=== PATIENT | female | born 1985 | race Caucasian/White ===

== ENCOUNTER 2017-12-02 09:48 | Day surgery (SDC) | payer OTHER ==
[2017-12-02] MEDS ORDERED: NS 1,000 ML IV (10:00)
[2017-12-02] MEDS ORDERED: PROPOFOL 200 MG/20 ML VIAL As Ordered ×2 (10:43)
[2017-12-02] MEDS ORDERED: diphenhydrAMINE INJ 50MG/ML VIAL (J1200) As Ordered (11:44)
[2017-12-02] MEDS ORDERED: MEPERIDINE INJ 25 MG/ML VIAL (J2175) IV (12:00)
== END 2017-12-02 12:35 | disposition home or self-care (01) ==
LOC: M OPP 09:48
DX: K92.1 Melena (principal); K59.04 Chronic idiopathic constipation; K64.8 Other hemorrhoids; F41.9 Anxiety disorder, unspecified; F32.9 Major depressive disorder, single episode, unspecified; R06.83 Snoring; Z79.899 Other long term (current) drug therapy
CPT/HCPCS: 45378

== ENCOUNTER → 2018-07-20 | Outpatient (CLI) | payer OTHER ==
[~2018-07-20] MED LIST: GASTROGRAFIN SOLUTION 30ML (Q9963) As Ordered ONE; ISOVUE-370 76% 100ML VIAL (Q9967) As Ordered ONE; LEXA1TAB PO; atarax PO
--- NOTE | 2018-07-21 06:27 | REP ---
Clinical: Generalized abdominal pain. Technique: Axial contrast enhanced images from the lung bases to the pubic symphysis using oral (per protocol) and 100 ml Isovue 370 intravenous contrast material with precontrast images of the abdomen as well as coronal and sagittal re-formations. Comparison: None available. Findings: Lung bases are clear. Visualized heart and pericardium normal. Liver, spleen, pancreas, gallbladder, bilateral adrenal glands and kidneys are normal. The enteric system including stomach, small, and large bowel is without obstruction or acute inflammatory process. Normal terminal ileum and appendix are identified in the right lower quadrant. Pelvis demonstrates normal bladder and age-appropriate uterus/adnexa. No pelvic fluid or ascites. No free air. No adenopathy. Abdominal aorta and vasculature are normal. Surrounding musculoskeletal structures are intact without focal osseous abnormality. Impression: 1. No acute abdominopelvic pathology appreciated. 2. Specifically, no ascites, focal inflammatory stranding, or adenopathy. Electronically Signed by Buddy Oconnell MD 07/21/2018 06:18 A
== END ==
LOC: M RAD 12:53
PROVIDERS: ATTEND Physician Assistant
DX: R10.9 Unspecified abdominal pain (principal)
CPT/HCPCS: 74178; Q9963; Q9967

== ENCOUNTER 2018-10-30 20:22 | Emergency (ER) | payer OTHER ==
[~2018-10-30] VITALS: Ht 162.6 cm; Wt 69.1 kg
[~2018-10-30 20:22] MED LIST changes: -GASTROGRAFIN SOLUTION 30ML (Q9963) As Ordered ONE; -ISOVUE-370 76% 100ML VIAL (Q9967) As Ordered ONE
[2018-10-30 20:23] VITALS: BP 131/77
[2018-10-30] MEDS ORDERED: IBUPROFEN 600 MG TAB PO ONE (21:30)
--- NOTE | 2018-10-31 09:59 | REP ---
REASON: Pain after trauma. COMPARISON: None. FINDINGS: The joint spaces are symmetric and relatively well maintained. There is no evidence of acute fracture or destructive osseous lesion. IMPRESSION: Negative. Electronically Signed by Abimael Guillaume DO 10/31/2018 09:08 A
== END 2018-10-30 22:02 | disposition home or self-care (01) ==
LOC: M ED 20:22
DX: S90.32XA Contusion of left foot, initial encounter (principal); X58.XXXA Exposure to other specified factors, initial encounter; Y92.89 Other specified places as the place of occurrence of the external cause; Z79.899 Other long term (current) drug therapy; Z88.8 Allergy status to other drugs, medicaments and biological substances; Z77.098 Contact with and (suspected) exposure to other hazardous, chiefly nonmedicinal, chemicals

== ENCOUNTER 2018-12-08 05:58 | Inpatient (IN) | payer OTHER ==
[2018-12-08] VITALS (7 sets, daily range): BP systolic 94–115; BP diastolic 55–70
[~2018-12-08] VITALS: Ht 162.6 cm; Wt 66.7 kg
[~2018-12-08 05:58] MED LIST changes: +BENA25CA4 PO; +EPIP0.3I2 IJ; +FLON1SPR; +HAIR1CHW2 PO; +LOTE0.5G OU; +LUNE2TAB23 PO; +PATA2.5S OD; +PROZ10CA7 PO; +REFR0.5D8 OU
[2018-12-08] MEDS ORDERED: LR 1,000 ML IV ONE (06:00)
[2018-12-08 06:21] LABS: HEMATOCRIT 39.8 % (36.0-47.0); HEMOGLOBIN 13.6 g/dl (12.0-15.5); MEAN CORPUSCULAR HEMOGLOBIN 30.8 pg (27.0-33.0); MEAN CORPUSCULAR HGB CONC 34.2 g/dl (32.0-36.5); MEAN CORPUSCULAR VOLUME 90.2 fl (80.0-96.0); PLATELET COUNT, AUTOMATED 227 10^3/uL (150-450); RED BLOOD COUNT 4.41 10^6/uL (4.00-5.40); WHITE BLOOD COUNT 8.5 10^3/uL (4.0-10.0)
[2018-12-08 06:38] LABS: BLOOD UREA NITROGEN 12 MG/DL (7-18); CALCIUM LEVEL 9.2 MG/DL (8.5-10.1); CARBON DIOXIDE LEVEL 29 MEQ/L (21-32); CHLORIDE LEVEL 105 MEQ/L (98-107); CREATININE FOR GFR 0.69 MG/DL (0.55-1.30); GLOMERULAR FILTRATION RATE > 60.0 (>60); GLUCOSE, FASTING 91 MG/DL (70-100); POTASSIUM SERUM 4.2 MEQ/L (3.5-5.1); SODIUM LEVEL 140 MEQ/L (136-145)
[2018-12-08 06:44] LABS: HCG, SERUM QUALITATIVE NEGATIVE (NEGATIVE)
[2018-12-08] MEDS ORDERED: LIDOCAINE 2% INJ 100 MG/5 ML SDV (FOR ANES.) As Ordered ONE (06:55)
[2018-12-08] MEDS ORDERED: dexameTHASONE 4 MG/ML 1ML VIAL (J1100) As Ordered ONE (06:55)
[2018-12-08] MEDS ORDERED: ROCURONIUM BROMIDE 50 MG/5 ML VIAL As Ordered ONE ×2 (06:55→08:16)
[2018-12-08] MEDS ORDERED: ONDANSETRON 4MG/2ML VIAL (J2405) As Ordered ONE (06:55)
[2018-12-08] MEDS ORDERED: PROPOFOL 200 MG/20 ML VIAL As Ordered ONE (06:55)
[2018-12-08] MEDS ORDERED: KETOROLAC 60 MG/2 ML VIAL (J1885) As Ordered ONE (06:56)
[2018-12-08] MEDS ORDERED: ACETAMINOPHEN 1000MG 100ML IV BTL (OFIRMEV) (J0131 PER 10MG) As Ordered ONE (06:56)
[2018-12-08] MEDS ORDERED: MIDAZOLAM INJ 2 MG/2 ML VIAL (J2250) As Ordered ONE (07:00)
[2018-12-08] MEDS ORDERED: fentaNYL 250 MCG/5 ML INJECTION (J3010) As Ordered ONE (07:00)
[2018-12-08] MEDS ORDERED: FLUORESCEIN 10% (100MG/ML) 5 ML VIAL As Ordered ONE (07:11)
[2018-12-08] MEDS ORDERED: BUPIVACAINE HCL 0.5% 30 ML VIAL As Ordered ONE (07:11)
[2018-12-08] MEDS ORDERED: ceFAZolin 2 GM/D5W 50 ML IV BAG (J0690 PER 500MG) As Ordered ONE (07:14)
[2018-12-08] MEDS ORDERED: ETOMIDATE INJ 20MG/10ML VIAL As Ordered ONE (07:26)
[2018-12-08] MEDS ORDERED: SUGAMMADEX SODIUM 500 MG/5 ML VIAL (BRIDION) As Ordered ONE (08:10)
[2018-12-08] MEDS ORDERED: SCOPOLAMINE 1MG TRANSDERMAL PATCH As Ordered ONE (09:45)
[2018-12-08] MEDS: LR 1,000 ML IV SCH (10:10)
[2018-12-08] MEDS ORDERED: MOM 30ML SUSPENSION UDC PO PRN (10:15)
[2018-12-08] MEDS ORDERED: MORPHINE 4 MG/ML 1ML VIAL/SYRINGE (J2270) IV PRN (10:15)
[2018-12-08] MEDS ORDERED: PERCOCET 5MG/325MG TAB PO PRN ×2 (10:15)
[2018-12-08] MEDS ORDERED: ONDANSETRON 4MG/2ML VIAL (J2405) IV PRN (10:15)
[2018-12-08] MEDS ORDERED: oxyCODONE 5MG TAB As Ordered ONE (10:41)
[2018-12-08] MEDS: oxyCODONE 5MG TAB PO PRN ×2 (10:45→11:25)
[2018-12-08] MEDS ORDERED: LR 1,000 ML IV SCH ×2 (11:00)
[2018-12-08] MEDS ORDERED: oxyCODONE 5MG TAB PO PRN (11:00)
[2018-12-08] MEDS ORDERED: fentaNYL 100 MCG/2 ML INJECTION (J3010) IV PRN ×2 (11:00)
--- NOTE | 2018-12-08 14:25 | IPNPDOC ---
Text Note Date of Service The patient was seen on 12/08/18. NOTE Patient seen this afternoon. POD#0 s/p uncomplicated TLH, bilateral salping ectomy, cystoscopy from this AM. EBL 25ml. Elodia reports pain is controlled. Mild nausea but not vomiting. Denies fevers/chills, SOB, chest pain. Vitals - VSS, HR 80s, BP 120s/60s, afebrile. General - Laying in bed, pleasant and conversant, NAD Abdomen - Soft, nondistended Extremities - SCDs in place UO - appropriate, ~200ml of fluorescein stained urine in dukes bag at bedside Doing well. Encourage ambulation when able. Dukes to be removed when ambulatory. Advance diet as tolerated. Encouraged IS use. Continue routine post op care. Anticipate DC home tomorrow if meeting all criteria. DO Venkatesh VS,Rell, I+O VS, Rell, I+O Laboratory Tests 12/08/18 06:07 Red Blood Count 4.41, Mean Corpuscular Volume 90.2, Mean Corpuscular Hemoglobin 30.8, Mean Corpuscular Hemoglobin Concent 34.2, Red Cell Distribution Width 12.3, Calcium Level 9.2 Vital Signs Date Time Temp Pulse Resp B/P (MAP) Pulse Ox O2 Delivery O2 Flow Rate FiO2 12/08/18 13:30 98.6 97 18 109/56 (73) 98 12/08/18 10:13 2 HEATHER GEE DO Dec 08, 2018 14:25
[2018-12-08] MEDS: KETOROLAC 30 MG/ML VIAL (J1885) IV SCH ×2 (15:21→21:59)
[2018-12-09] MEDS: LR 1,000 ML IV SCH (00:29)
[2018-12-09 00:52] VITALS: BP 93/49
[2018-12-09 01:00] VITALS: BP 147/61
[2018-12-09] MEDS: KETOROLAC 30 MG/ML VIAL (J1885) IV SCH ×2 (04:01→09:26)
[2018-12-09 05:29] VITALS: BP 103/56
[2018-12-09 06:51] LABS: BASO % 0.2 % (0.0-1.0); EOS # 0.2 10^3/uL (0.0-0.5); EOS % 1.3 % (0.0-3.0); HEMATOCRIT 30.8 % (36.0-47.0); LYMPH # 3.1 10^3/uL (1.5-5.0); LYMPH % 24.4 % (24.0-44.0); MEAN CORPUSCULAR HEMOGLOBIN 31.6 pg (27.0-33.0); MEAN CORPUSCULAR HGB CONC 34.4 g/dl (32.0-36.5); MEAN CORPUSCULAR VOLUME 91.9 fl (80.0-96.0); MONO # 0.8 10^3/uL (0.0-0.8); MONO % 6.4 % (0.0-5.0); NEUTROPHILS # 8.5 10^3/uL (1.5-8.5); NEUTROPHILS % 67.4 % (36.0-66.0); PLATELET COUNT, AUTOMATED 168 10^3/uL (150-450); RED BLOOD COUNT 3.35 10^6/uL (4.00-5.40); WHITE BLOOD COUNT 12.6 10^3/uL (4.0-10.0)
[2018-12-09 06:57] LABS: HEMOGLOBIN 10.6 g/dl (12.0-15.5)
[2018-12-09 07:10] LABS: BLOOD UREA NITROGEN 8 MG/DL (7-18); CALCIUM LEVEL 8.1 MG/DL (8.5-10.1); CARBON DIOXIDE LEVEL 29 MEQ/L (21-32); CHLORIDE LEVEL 106 MEQ/L (98-107); CREATININE FOR GFR 0.69 MG/DL (0.55-1.30); GLOMERULAR FILTRATION RATE > 60.0 (>60); GLUCOSE, FASTING 87 MG/DL (70-100); POTASSIUM SERUM 3.8 MEQ/L (3.5-5.1); SODIUM LEVEL 140 MEQ/L (136-145)
--- NOTE | 2018-12-09 09:13 | RO ---
DATE OF PROCEDURE: 12/08/2018 PREOPERATIVE DIAGNOSIS: Persistent, severe dysmenorrhea. POSTOPERATIVE DIAGNOSIS: Persistent, severe dysmenorrhea and pelvic organs consistent in appearance with endometriosis. PROCEDURE: Total laparoscopic hysterectomy with bilateral salpingectomy and cystoscopy. SURGEON: Dr. Bryant Riddle SUPERVISOR SAFETY DEPOSIT: Dr. Debi Batista ANESTHESIA: General. FLUIDS: 1200 mL Lactated Ringer's. URINE OUTPUT: 250 mL. ESTIMATED BLOOD LOSS: 25 mL. COMPLICATIONS: None. OPERATIVE FINDINGS: A globular appearing uterus and scarring around the uterosacral ligaments and posterior cul-de-sac consistent with endometriosis. Normal fallopian tube on the right side and left fallopian tube adhesed to the left ovary. Normal liver edge, normal gastric curve, normal gallbladder. On cystoscopy there was a normal appearing intact bladder with no sutures, lesions or defects, and brisk efflux of urine was seen from each ureteral orifice. ANTIBIOTICS: 2 grams Ancef before start. DETAILED PROCEDURE DESCRIPTION: The risks, benefits, indications and alternatives of the procedure were reviewed with the patient and informed consent was obtained. The patient was taken to the operating room where general anesthesia was obtained without difficulty. The patient was then placed in the lithotomy position using Nam stirrups. An exam under anesthesia was then performed and was significant for a midline mobile 8 week size uterus with good lateral mobility, but minimal to no descent. A surgical time out was then performed and the patient's identity and planned procedure were verified with the operative team. A dukes catheter placed first, draining the bladder. A sterile speculum was then placed into the patient's vagina. The cervix was visualized. A single toothed tenaculum was used to grasp the anterior lip of the cervix. An #0 Vicryl stitch was then applied to the anterior lip of the cervix. The tenaculum was removed. The cervix was then gently dilated. The VCare uterine manipulator was then placed into the uterus as a means to manipulate the uterus. The speculum was then removed from the vagina. Gloves were then exchanged and attention was then turned to the patient's abdomen were a 5 mm skin incision was then made in the inferior aspect of the umbilicus. A 5 mm trocar and sleeve were then carefully introduced into the peritoneal cavity under direct visualization at a 90 degree angle while tenting up the abdominal wall. Intraperitoneal placement was confirmed under direct visualization and entry pressure was noted to be less than 5 mm of mercury. A pneumoperitoneum was then obtained with several liters of CO2 gas. Upon entry into the peritoneal cavity the structures immediately below the incision were inspected and found to be free of injury. A survey of the patient's abdomen and pelvis was notable for a normal appearing liver and gastric curve and gallbladder. The uterus was slightly enlarged and there was scarring around the uterosacral ligaments consistent with endometriosis. The right fallopian tube was normal and the left fallopian tube was somewhat adhesed to the left ovary. The ovaries were otherwise normal. The ureters were then identified bilaterally and were noted to be well away from the operative field. At this point, two additional 5 mm trocars were then inserted into the abdomen, one in the right lower quadrant and one in the left lower quadrant, under direct visualization after skin incisions were made with a scalpel. Stabilizing the uterus with the Medivanceare manipulator, the LigaSure we then used to clamp, cut and ligate the round ligaments bilaterally. The anterior broad ligament was then incised along the bladder reflection bilaterally and the bladder was dissected off the lower uterine segment until the endopelvic fascia was visualized. The ureters again were identified bilaterally coursing well away from the operative field. Attention was then turned to the fallopian tubes. The left fallopian tube was then identified and followed out to the fimbriated end. It was slightly adhesed to the ovary but it was removed. The fallopian tube was then dissected from the underlying mesosalpinx with the LigaSure electrocautery and then amputated at its connection to the cornua. An identical procedure was then performed on the right fallopian tube and the amputated fallopian tubes were then placed in the posterior cul-de-sac. The utero-ovarian ligaments were then ligated as close as possible to the uterine corpus using the LigaSure. The pedicles were inspected and hemostasis was assured. The uterine arteries were then identified bilaterally, skeletonized and ligated using LigaSure electrocautery. The uterosacral ligaments and cardinal ligaments were then transected bilaterally using the LigaSure. Careful hemostasis was ensured throughout this process. The colpotomy was then made with a monopolar L hook device. The colpotomy was made circumferentially around the cervix using the Medivanceare uterine manipulator as a guide. The entire cervix and the uterus were then successfully amputated from the vagina. Excellent hemostasis was assured throughout this process. Attention was then turned to the patient's vagina. The uterus and cervix were then delivered through the vagina. The bilateral fallopian tubes were then removed from the posterior cul-de-sac and handed off the field. The vaginal cuff was then closed from below with #0 Vicryl suture in a running fashion. Excellent hemostasis was ensured. The patient's Dukes catheter was then removed and the cystoscope was primed. The cystoscope was then advanced into the bladder. The bladder was then distended with sterile saline and a systematic examination of the bladder was performed. The bladder was noted to be intact with no lesions, defects or suture. Both ureteral orifices were seen bilaterally and brisk efflux of urine was seen from each opening. The cystoscope was then removed and the Dukes catheter was replaced. Gloves and gown were then exchanged and a re-scope was performed. Attention was turned back to the patient's pelvis, which was copiously irrigated. All pedicles were noted to be hemostatic. The vaginal cuff was inspected and there was noted to be a bleeder at the cuff edge in the midline. This bleeding was controlled with the LigaSure electrocautery and excellent hemostasis was achieved. The cuff was irrigated to good effect. Sonido was then placed along the vaginal cuff and hemostasis was assured. Careful inspection of all operative sites along all pedicles and the vaginal cuff revealed continued hemostasis. The pneumoperitoneum was then released and all CO2 was removed from the patient's abdomen. The trocars were then removed under direct visualization and there was no bleeding seen from the trocar sites. Skin incisions were then closed with #4-0 Monocryl suture and then covered with DERMABOND. A manual exam was then performed of the vagina which demonstrated excellent suspension and elevation. A vaginal sweep was performed and confirmed no retained foreign objects remained. The vagina was then irrigated to good effect and hemostasis was assured at the cuff. At the completion of the case the sponge, instrument and needle counts were correct times three. The patient was taken to the postanesthesia care unit (PACU) in stable condition. EFREM
[2018-12-09] MEDS ORDERED: PERCOCET PO ×2 (09:49)
--- NOTE | 2018-12-09 09:52 | DS.PDOC ---
Discharge Summary General Date of Admission Dec 08, 2018 at 05:58 Date of Discharge Dec 09, 2018 Discharge Summary HOSPITAL COURSE: Elodia Chi was admitted to [facility] [place] on 08Dec2018 for a planned hysterectomy for severe dysmenorrhea. She underwent an uncomplicated total laparoscopic hysterectomy, bilateral salpingectomy, and cystoscopy on that same day. Her post operative recovery course was unremarkable. On her day of discharge she met all appropriate discharge criteria. She was ambulating, voiding on her own, tolerating a regular diet, passing gas, and her pain was well controlled. DISCHARGE MEDICATIONS: Please see below. ALLERGIES: Please see below. PHYSICAL EXAMINATION ON DISCHARGE: VITAL SIGNS: Please see below. GENERAL: AAOX3, sitting up in bed, pleasant and conversant, NAD ABDOMINAL EXAMINATION: Abdomen soft, nondistended. Laparoscopic port sites well appearing. Dermabond in place. No tenderness to palpation. +Bowel sounds in all 4 quadrants. EXTREMITIES: No edema PSYCHIATRIC EXAMINATION: Affect appropriate LABORATORY DATA: Please see below. ACTIVITY: Pelvic rest for 6 weeks. DIET: Regular DISCHARGE PLAN: Discharge home DISPOSITION: Discharge home on 09Dec2018. DISCHARGE INSTRUCTIONS: Postoperatively, you should expect significant abdominal soreness following a laparoscopic surgery. We will provide oral pain medications, typically an anti- inflammatory (motrin) and an oral narcotic (percocet or norco). It is recommended to take the anti-inflammatory medication three times daily, using the narcotic medication as needed in addition. Sometimes, narcotic medications can cause constipation, and we recommend using a stool softener, drinking plenty of water, increasing the fiber in your diet, and drinking prune juice if constipation becomes a significant issue. Dressings: Your laparoscopic incisions are typically closed with either absorbable stitches (covered with a gauze and plastic dressing which can be removed on the day following surgery) or with Dermabond (a medical adhesive). You may shower on the day following surgery. It is normal to have some pain at the incisions that is sharp. Signs of infection at the incision include pain, redness, swelling and drainage of pus from the incision. Precautions: Please contact the [facility] clinic or the Emergency Room after hours for any of the following symptoms, * Fever (temperature > 101F) * Significant pain not controlled with oral pain medications * Significant nausea and vomiting with inability to tolerate any food or medication * Significant redness of the incisions or drainage from the incisions Return to normal: You should be able to resume normal activities and exercise within 6 weeks. You may notice more soreness with abdominal exercises, and this is to be expected. Avoid heavy lifting greater than 10 pounds until 6 weeks after surgery. Nothing in the vagina (no tampons, intercourse, or douching) for 6wks. You may resume sexual activity 8 weeks after surgery when cleared by your surgeon. ITEMS TO FOLLOWUP ON ON OUTPATIENT: 1. Post appointment on [id number] DISCHARGE CONDITION: Stable. TIME SPENT ON DISCHARGE: Greater than 20 minutes. Heather Riddle DO Vital Signs/I&Os Vital Signs Date Time Temp Pulse Resp B/P (MAP) Pulse Ox O2 Delivery O2 Flow Rate FiO2 12/09/18 05:29 99.1 59 16 103/56 (72) 96 12/08/18 10:13 2 I&O- Last 24 Hours up to 6 AM 12/09/18 06:00 Intake Total 2990 ml Output Total 1475 ml Balance 1515 ml Laboratory Data Labs 24H Laboratory Tests 2 12/09/18 06:31: Immature Granulocyte % (Auto) 0.3, White Blood Count 12.6H, Red Blood Count 3.35L, Hemoglobin 10.6#L, Hematocrit 30.8L, Mean Corpuscular Volume 91.9, Mean Corpuscular Hemoglobin 31.6, Mean Corpuscular Hemoglobin Concent 34.4, Red Cell Distribution Width 12.5, Platelet Count 168, Neutrophils (%) (Auto) 67.4H, Lymphocytes (%) (Auto) 24.4, Monocytes (%) (Auto) 6.4H, Eosinophils (%) (Auto) 1.3, Basophils (%) (Auto) 0.2, Neutrophils # (Auto) 8.5, Lymphocytes # (Auto) 3.1, Monocytes # (Auto) 0.8, Eosinophils # (Auto) 0.2, Basophils # (Auto) 0.0, Nucleated Red Blood Cells % (auto) 0.0, Anion Gap 5L, Glomerular Filtration Rate > 60.0, Blood Urea Nitrogen 8, Creatinine 0.69, Sodium Level 140, Potassium Level 3.8, Chloride Level 106, Carbon Dioxide Level 29, Calcium Level 8.1L CBC/BMP Laboratory Tests 12/09/18 06:31 Red Blood Count 3.35 L, Mean Corpuscular Volume 91.9, Mean Corpuscular Hemoglobin 31.6, Mean Corpuscular Hemoglobin Concent 34.4, Red Cell Distribution Width 12.5, Neutrophils (%) (Auto) 67.4 H, Lymphocytes (%) (Auto) 24.4, Monocytes (%) (Auto) 6.4 H, Eosinophils (%) (Auto) 1.3, Basophils (%) (Auto) 0.2, Neutrophils # (Auto) 8.5, Lymphocytes # (Auto) 3.1, Monocytes # (Auto) 0.8, Eosinophils # (Auto) 0.2, Basophils # (Auto) 0.0, Calcium Level 8.1 L Discharge Medications Scheduled Ascorbic Acid/Vitamin E/Biotin (Hair Skin Nails-Biotin Gummies) 1 Each Tab.chew, 1 CHW PO DAILY, (Reported) Carboxymethylcellulose Sodium (Refresh Tears) 15 Ml Drops, 0.5 % OU QID, (Reported) Diphenhydramine HCl (Benadryl) 25 Mg Capsule, 50 MG PO QHS, (Reported) Epinephrine (Epipen 2-Ney) 0.3 Mg/0.3 Ml Auto.injct, 0.3 MG IJ PRN, (Reported) Eszopiclone (Lunesta) 2 Mg Tablet, 2 MG PO QHS, (Reported) Fluoxetine HCl (Prozac) 10 Mg Capsule, 10 MG PO DAILY, (Reported) Fluticasone Propionate (Flonase Allergy Relief) 9.9 Ml [place].susp, 50 MCG NA DAILY, (Reported) Loteprednol Etabonate (Lotemax) 0.5% 5GM Drops.gel, 1 DROP OU DAILY, (Reported) Olopatadine HCl (Patanol) 0.1% 5ML Drops, 1 DROP OD BID, (Reported) Scheduled PRN Oxycodone/Acetaminophen (Oxycodone-Acetaminophen 5-325) 1 Each Tablet, 1 TAB PO Q4HP PRN for MODERATE PAIN (PS 5-7) Oxycodone/Acetaminophen (Oxycodone-Acetaminophen 5-325) 1 Each Tablet, 2 TAB PO Q6HP PRN for SEVERE PAIN (PS 8-10) Allergies Coded Allergies: bee venom protein (honey bee) (Verified Allergy, Severe, swelling, 12/08/18) propofol (Verified Allergy, Severe, FACIAL SWELLING AND HIVES, congestion, 12/08/18) shellfish derived (Verified Allergy, Severe, anaphylaxis, 12/08/18) HEATHER RIDDLE DO Dec 09, 2018 09:52
--- NOTE | 2018-12-09 09:56 | IPNPDOC ---
Text Note Date of Service The patient was seen on 12/09/18. NOTE Patient seen this AM. POD#1 s/p uncomplicated TLH, bilateral salpingectomy, cystoscopy from [id number]. Elodia reports feeling well. Pain is controlled. She is ambulating, voiding on her own, tolerating a regular diet, passing gas, and has no n/v. She denies any vaginal bleeding. Vitals - VSS, HR 60-70s, BP 120s/60s, afebrile. General - Laying in bed, pleasant and conversant, NAD Abdomen - Soft, nondistended. Laparoscopic port sites well healed with dermabond in place. Minimal tenderness to palpation. +bowel sounds in all quadrants. Extremities - No edema UO - Excellent Labs: Pre op h/h --> post op ~ this AM. Elodia is doing well and is meeting all postoperative milestones. Will discharge home today. DO Venkatesh VS,Rell, I+O VS, [place], I+O Laboratory Tests 12/09/18 06:31 Red Blood Count 3.35 L, Mean Corpuscular Volume 91.9, Mean Corpuscular Hemoglobin 31.6, Mean Corpuscular Hemoglobin Concent 34.4, Red Cell Distribution Width 12.5, Neutrophils (%) (Auto) 67.4 H, Lymphocytes (%) (Auto) 24.4, Monocytes (%) (Auto) 6.4 H, Eosinophils (%) (Auto) 1.3, Basophils (%) (Auto) 0.2, Neutrophils # (Auto) 8.5, Lymphocytes # (Auto) 3.1, Monocytes # (Auto) 0.8, Eosinophils # (Auto) 0.2, Basophils # (Auto) 0.0, Calcium Level 8.1 L Vital Signs Date Time Temp Pulse Resp B/P (MAP) Pulse Ox O2 Delivery O2 Flow Rate FiO2 12/09/18 05:29 99.1 59 16 103/56 (72) 96 12/08/18 10:13 2 I&O- Last 24 Hours up to 6 AM 12/09/18 06:00 Intake Total 2990 ml Output Total 1475 ml Balance 1515 ml HEATHER GEE DO Dec 09, 2018 09:56
== END 2018-12-09 10:30 | disposition home or self-care (01) | DRG 743 ==
LOC: M OR 05:58 → M MS5PR 11:50
PROVIDERS: ADMIT Obstetrics & Gynecology; ATTEND Obstetrics & Gynecology
PROC: 0UT74ZZ Resection of Bilateral Fallopian Tubes, Percutaneous Endoscopic Approach (ICD-10-PCS; 2018-12-08)
PROC: 0UT94ZZ Resection of Uterus, Percutaneous Endoscopic Approach (ICD-10-PCS; principal; 2018-12-08 07:30)
PROC: 0UTC4ZZ Resection of Cervix, Percutaneous Endoscopic Approach (ICD-10-PCS; 2018-12-08 07:30)
DX: N94.6 Dysmenorrhea, unspecified (principal)

== ENCOUNTER → 2019-07-10 | Outpatient (CLI) | payer OTHER ==
[~2019-07-10] MED LIST changes: +PERCOCET PO
--- NOTE | 2019-07-10 14:32 | REP ---
Cervical spine series: Seven views. History: Muscle strain. Findings: Lateral views done in flexion, extension, and neutral position demonstrate normal alignment. No subluxation or instability is seen. Vertebral body heights are preserved. Disc spaces are maintained. Prevertebral soft tissues are not widened. AP and open mouth odontoid views are unremarkable. Bilateral oblique radiographs demonstrate intact neural foramina and normally aligned facets at each level. Impression: Negative cervical spine radiographs. Electronically Signed by Manjit Nieto MD 07/10/2019 02:23 P
== END ==
LOC: M WUC 13:46
PROVIDERS: ATTEND Physician Assistant
DX: S16.1XXA Strain of muscle, fascia and tendon at neck level, initial encounter (principal); W18.30XA Fall on same level, unspecified, initial encounter; Y92.9 Unspecified place or not applicable

== ENCOUNTER 2019-08-14 11:17 | Emergency (ER) | payer OTHER ==
[~2019-08-14] VITALS: Ht 162.6 cm; Wt 76.6 kg
[2019-08-14] MEDS ORDERED: CETI10CH PO (11:26)
[2019-08-14] MEDS ORDERED: LEXA1TAB PO (11:26)
[2019-08-14] MEDS ORDERED: MECLIZINE 25 MG TABLET PO ONE (12:30)
[2019-08-14] MEDS ORDERED: diazePAM 10MG/2ML SYRINGE (J3360 PER 5MG) IV ONE (12:30)
[2019-08-14] MEDS ORDERED: NS 1,000 ML IV ONE (12:45)
[2019-08-14] MEDS ORDERED: ONDANSETRON 4MG/2ML VIAL As Ordered ONE (12:49)
[2019-08-14 12:56] LABS: BASO % 0.3 % (0.0-1.0); EOS # 0.1 10^3/uL (0.0-0.5); EOS % 0.6 % (0.0-3.0); HEMOGLOBIN 13.1 g/dl (12.0-15.5); LYMPH # 1.9 10^3/uL (1.5-5.0); LYMPH % 21.4 % (24.0-44.0); MEAN CORPUSCULAR HEMOGLOBIN 30.5 pg (27.0-33.0); MEAN CORPUSCULAR HGB CONC 34.5 g/dl (32.0-36.5); MEAN CORPUSCULAR VOLUME 88.4 fl (80.0-96.0); MONO # 0.5 10^3/uL (0.0-0.8); NEUTROPHILS # 6.2 10^3/uL (1.5-8.5); NEUTROPHILS % 71.5 % (36.0-66.0); PLATELET COUNT, AUTOMATED 196 10^3/uL (150-450); WHITE BLOOD COUNT 8.7 10^3/uL (4.0-10.0)
[2019-08-14] MEDS ORDERED: ONDANSETRON 4MG/2ML VIAL IV ONE (13:00)
--- NOTE | 2019-08-14 13:00 | ECGEPIP ---
[facility] - ED Test Date: 2019-08-14 Pat Name: CHRIS VASQUEZ Department: Room: - Gender: Female [employer] Operator: faye : 1985 Requested By: Ana Villalobos Order Number: [id number] Reading MD: Ana Villalobos Measurements Intervals [place] Rate: 72 P: 56 TN: 148 QRS: 61 QRSD: 93 T: 48 QT: 386 QTc: 423 Interpretive Statements SINUS RHYTHM No prior Electronically Signed on 08-14-2019 12:59:51 EDT by Ana Villalobos
--- NOTE | 2019-08-14 13:04 | REP ---
Clinical: Dizziness . Comparison: None . Technique: Axial noncontrast images from the skull base to the vertex with coronal re-formations. Findings: The ventricles, sulci, and cisterns are normal in position and appearance. Esparza-white differentiation is maintained. No acute intracranial hemorrhage, mass/mass effect, pathology or trauma/injury. No evidence for acute infarction. No extra-axial fluid collection. Calvarium is intact. Paranasal sinuses and mastoid air cells are clear. Impression: Normal noncontrast head CT. No evidence for acute intracranial pathology or trauma/injury. Electronically Signed by Buddy Oconnell MD 08/14/2019 12:56 P
[2019-08-14 13:32] LABS: ALT/SGPT 27 U/L (12-78); BILIRUBIN,DIRECT 0.1 MG/DL (0.0-0.2); BILIRUBIN,TOTAL 0.5 MG/DL (0.2-1.0); CK-MB VALUE MASS < 1.0 NG/ML (<3.6); CPK CREATINE PHOSPHOKINASE 90 U/L (26-192); MAGNESIUM LEVEL 2.1 MG/DL (1.8-2.4); MB/CK RELATIVE INDEX 1.11 (< OR =4); TOTAL PROTEIN 7.1 GM/DL (6.4-8.2); TROPONIN I < 0.02 NG/ML (< 0.10)
[2019-08-14] MEDS ORDERED: ONDA4TAB6 PO (14:18)
[2019-08-14] MEDS ORDERED: FLON1SPR NARES (14:18)
[2019-08-14] MEDS ORDERED: MECL1TAB31 PO (14:18)
[2019-08-14 14:30] VITALS: BP 109/57
[2019-08-14] MEDS ORDERED: VALI5TAB PO (14:50)
[2019-08-14] MEDS ORDERED: diazePAM 5 MG TAB PO ONE (15:00)
== END 2019-08-14 15:13 | disposition home or self-care (01) ==
LOC: M ED 11:17
DX: H81.393 Other peripheral vertigo, bilateral (principal); H65.93 Unspecified nonsuppurative otitis media, bilateral; J30.89 Other allergic rhinitis; Z79.899 Other long term (current) drug therapy; Z88.8 Allergy status to other drugs, medicaments and biological substances; Z91.018 Allergy to other foods; Z91.030 Bee allergy status; Z87.891 Personal history of nicotine dependence
CPT/HCPCS: 70450; 80047; 80076; 82550; 82553; 83735; 84443; 84484; 85025; 93005; 93041; 94760; 96361; 96374; 96376; 99285; J2405; J3360